=== PATIENT | male | born 1990 | race African-American/Black ===

== ENCOUNTER 2020-08-05 08:11 | Emergency (ER) | payer SELFPAY ==
[~2020-08-05] VITALS: Ht 190.5 cm; Wt 90.9 kg
[2020-08-05 08:14] VITALS: BP 129/78
== END 2020-08-05 08:40 | disposition left against medical advice (07) ==
LOC: EMS 08:15
DX: M79.622 Pain in left upper arm (principal); Z53.21 Procedure and treatment not carried out due to patient leaving prior to being seen by health care provider